=== PATIENT | female | born 1970 | race Two or more races ===

== ENCOUNTER 2019-08-31 05:24 | Emergency (ER) | payer OTHER, SELFPAY ==
[~2019-08-31] VITALS: Ht 157.5 cm; Wt 84.0 kg
[2019-08-31] MEDS ORDERED: ONDANSETRON ODT 4 MG PO ONE (06:00)
[2019-08-31] MEDS ORDERED: ONDANSETRON ODT 4 MG ONE (06:01)
--- NOTE | 2019-08-31 06:18 | NUR ---
Patient cambodian speaking; presents to ER c/o sore throat, fever, chills, back pain since Friday. Patient is also nauseous. Patient is crying during exam with ERP. Respirations even and unlabored.
[2019-08-31] MEDS ORDERED: LISI5TAB7 PO (06:22)
[2019-08-31] MEDS ORDERED: METF500T17 PO (06:22)
[2019-08-31] MEDS ORDERED: ATOR10TA9 PO (06:22)
[2019-08-31 06:27] LABS: BASOPHILS # (AUTO) 0.01 x10^3/uL (0-0.1); BASOPHILS % (AUTO) 0 % (0-1); EOSINOPHILS # (AUTO) 0.06 x10^3/uL (0-0.4); EOSINOPHILS % (AUTO) 1 % (1-7); LYMPHOCYTES # (AUTO) 1.54 x10^3/uL (1-3.4); LYMPHOCYTES % (AUTO) 26 % (22-44); MD NO; MEAN CORPUSCULAR HEMOGLOBIN 28.8 pg (27.0-34.8); MEAN CORPUSCULAR HGB CONC 33.1 g/dL (32.4-35.8); MEAN CORPUSCULAR VOLUME 87.1 fL (80-100); MEAN PLATELET VOLUME 7.8 fL (7.4-10.4); MONOCYTES # (AUTO) 0.38 x10^3/uL (0.2-0.8); MONOCYTES % (AUTO) 7 % (2-9); NEUTROPHILS # (AUTO) 3.87 x10^3/uL (1.8-6.8); NEUTROPHILS % (AUTO) 66 % (42-75); PLATELET COUNT 219 x10^3/uL (130-400); RED BLOOD COUNT 4.66 x10^6/uL (3.82-5.3); RED CELL DISTRIBUTION WIDTH 14.1 % (9.6-15.2)
[2019-08-31 06:40] LABS: ALANINE AMINOTRANSFERASE 54 U/L (12-78); ALBUMIN 3.3 g/dL (3.4-5.0); ANION GAP 8 mmol/L (5-15); CALCIUM 8.3 mg/dL (8.5-10.1); CHLORIDE 108 mmol/L (98-107); CREATININE 0.53 mg/dL (0.55-1.02)
[2019-08-31 06:42] LABS: ALKALINE PHOSPHATASE 119 U/L (45-117); BILIRUBIN,TOTAL 0.2 mg/dL (0.2-1.0); TOTAL PROTEIN 7.4 g/dL (6.4-8.2)
[2019-08-31] MEDS ORDERED: ACETAMINOPHEN 500 MG TABLET ONE (06:46)
--- NOTE | 2019-08-31 06:57 | NUR ---
Report given to DEISY Stokes.
--- NOTE | 2019-08-31 06:58 | NUR ---
Report from Radha OLIVAS, pt care transferred at this time. Pt resting in gurney, NAD, skin color WNL and dry, RESP WNL, lights dimmed for comfort, call light within reach, WCTM.
[2019-08-31] MEDS ORDERED: ACETAMINOPHEN 500 MG TABLET PO ONE (07:00)
[2019-08-31 07:44] VITALS: BP 109/50
--- NOTE | 2019-08-31 07:45 | NUR ---
[employer] phone (employee benefits director number [phone]) used to review discharge instructions. Patient given discharge instructions and they have confirmed that they understand the instructions. Patient ambulatory with steady gait. NAD, skin color WNL and warm/dry, FCS no SOB noted, pt denies additional questions at this time.
== END 2019-08-31 08:04 | disposition home or self-care (01) ==
LOC: ED 05:34
DX: U07.1 COVID-19 (principal); J02.8 Acute pharyngitis due to other specified organisms; B97.89 Other viral agents as the cause of diseases classified elsewhere; E11.65 Type 2 diabetes mellitus with hyperglycemia; R06.02 Shortness of breath; R94.31 Abnormal electrocardiogram [ECG] [EKG]
CPT/HCPCS: 36415; 71045; 80053; 85025; 93005; 99285; Q0162; U0001